=== PATIENT | female | born 1990 | race Caucasian/White ===

== ENCOUNTER 2019-06-20 19:23 | Inpatient (IN) | payer MEDICAID ==
[~2019-06-20] VITALS: Ht 172.7 cm; Wt 81.6 kg
[2019-06-20] MEDS ORDERED: LACTATED RINGER'S 1,000 ML IV ONE (19:30)
[2019-06-20 20:21] LABS: Basophils # (auto) 0 uL; Basophils % (auto) 0.3 % (0.0-2.0); Eosinophils # (auto) 0 uL; Eosinophils % (auto) 0.3 % (0.0-7.0); Hematocrit 33.6 % (36.0-46.0); Hemoglobin 11.6 g/dL (12.2-16.2); Lymphocytes % (auto) 19.9 % (10.0-50.0); Mean Corpuscular Hemoglobin 30.8 pg (28.0-32.0); Mean Corpuscular Hgb Conc. 34.6 g/dL (32.0-36.0); Monocytes # (auto) 0.5 uL; Monocytes % (auto) 5.2 % (0.0-12.0); Neutrophils # (auto) 7.3 uL; Neutrophils % (auto) 74.3 % (37.0-80.0); Nucleated Red Blood Cells % 0.1 %; Platelet Count (auto) 172 10^3/uL (140-450); Red Blood Cells 3.77 10^6/uL (4.0-5.20); Red Cell Distribution Width 14.3 % (11.8-14.3); White Blood Cell 9.9 10^3/uL (4.4-10.8)
[2019-06-20 20:28] LABS: Urine Bacteria FEW /hpf (None Seen); Urine Blood Negative /uL (Negative); Urine Specific Gravity 1.017 (1.001-1.035); Urine WBC <1 /hpf (0 - 5)
[2019-06-20 20:31] LABS: INR 0.91 (0.9-1.15); Partial Thromboplastin Time 28.9 sec (23.64-32.05)
[2019-06-20 20:39] LABS: Albumin 2.9 g/dL (3.4-5.0); BUN/Creatinine Ratio 10.7; Calcium 8.3 mg/dL (8.5-10.1); Potassium 3.7 mmol/L (3.5-5.1); Uric Acid 4.6 mg/dL (2.6-6.0)
[2019-06-20 20:41] LABS: Amphetamine Screen, Urine NEGATIVE (NEGATIVE); Barbiturate Scree,Urine NEGATIVE (NEGATIVE); Benzodiazephine Screen, Urine NEGATIVE (NEGATIVE); Cannabinoid Screen, Urine NEGATIVE (NEGATIVE); Cocaine Screen, Urine NEGATIVE (NEGATIVE); Opiate Scree,Urine NEGATIVE (NEGATIVE); Phencyclidine Screen, Urine NEGATIVE (NEGATIVE)
[2019-06-20 20:42] LABS: Bilirubin, Total 0.6 mg/dL (0.2-1.0); Total Protein 6.9 g/dL (6.4-8.2)
[2019-06-20 20:59] LABS: Alcohol, Urine < 3.0 mg/dL (0-5)
[2019-06-21] MEDS ORDERED: LACT. RINGERS/OXYTOCIN 20UNITS 1,000 ML IV SCH (00:56)
[2019-06-21] MEDS ORDERED: DERMOPLAST 60ML BOTTLE TOP PRN (01:00)
[2019-06-21] MEDS ORDERED: LIDOCAINE 2%HCL (LOCAL ANESTH.) INJ 20ML MDV ID ONE (01:00)
[2019-06-21] MEDS ORDERED: PHISODERM TOP SOLN 240ML BTL TOP PRN (01:00)
[2019-06-21] MEDS ORDERED: CARBOPROST TROMETHAMINE 250 MCG/1ML VIAL IM PRN (01:00)
[2019-06-21] MEDS ORDERED: WITCH HAZEL-GLYCERIN PAD TOP PRN (01:00)
[2019-06-21] MEDS ORDERED: METHYLERGONOVINE MALEATE 0.2 MG/ML AMP IM PRN (01:00)
[2019-06-21] MEDS ORDERED: PREN-96 PO (03:10)
[2019-06-21] MEDS: LACTATED RINGER'S 1,000 ML IV SCH ×2 (09:57→18:40)
[2019-06-22] MEDS: LACTATED RINGER'S 1,000 ML IV SCH ×2 (02:57→10:21)
[2019-06-22] MEDS ORDERED: BUTORPHANOL TARTRATE 2 MG/1 ML VIAL IV ONE ×2 (03:30→08:45)
[2019-06-22] MEDS ORDERED: PROMETHAZINE HCL 25 MG/ML 1ML IV ONE ×2 (03:30→08:45)
[2019-06-22 05:06] LABS: RPR Non Reactive (Non Reactive)
[2019-06-22] MEDS ORDERED: LACTATED RINGER'S 1,000 ML IV ONE (09:56)
[2019-06-22] MEDS ORDERED: NALOXONE HCL 0.4 MG/ML VIAL IV ONE (10:00)
[2019-06-22] MEDS ORDERED: fentaNYL 200mCg/100ml W ROPIVA 100 ML EPI SCH (10:00)
[2019-06-22] MEDS ORDERED: ePHEDrine SULFATE 50 MG/ML AMP IV ONE (10:00)
[2019-06-22] MEDS ORDERED: fentaNYL CITRATE 100 MCG/2 ML VL IV ONE (10:00)
[2019-06-22] MEDS ORDERED: LIDOCAINE HCL 2 %PF INJ 10ML AMP IJ ONE (10:00)
[2019-06-22 12:44] VITALS: BP 115/55
--- NOTE | 2019-06-22 12:45 | NUR ---
Ambulation: Patient OOB with standby assistance by RN. Patient ambulated to bathroom with steady gait. Patient able to void 850ml pink tinged urine without difficulty. [facility] teaching provided with returned demonstration by patient. Clean gown provided and bed linen changed. Patient ambulated back to bed with steady gait and no distress noted.
[2019-06-22] MEDS ORDERED: IBUPROFEN 600 MG TAB PO PRN (13:30)
[2019-06-22] MEDS ORDERED: ACETAMINOPHEN 325 MG TAB PO PRN (13:30)
[2019-06-22 13:58] VITALS: BP 88/50
--- NOTE | 2019-06-22 14:40 | NUR ---
VOID #2 PT AMBULATED TO BATHROOM VIA STEADY GAIT. PT ABLE TO VOID 700ML PINK TINGED URINE WITHOUT DIFFICULTY. NO DISTRESS NOTED. WILL CONTINUE TO MONITOR.
[2019-06-22 15:00] VITALS: BP 91/54
[2019-06-22] MEDS: IBUPROFEN 600 MG TAB PO PRN ×3 (16:42→23:19)
[2019-06-22 19:00] VITALS: BP 109/57
[2019-06-22 23:00] VITALS: BP 102/61
--- NOTE | 2019-06-22 23:45 | NUR ---
IV removal IV DC'd with clean technique, catheter fully intact. Pressure dressing applied to site. Patient tolerated well. NOTE:
[2019-06-23 02:32] VITALS: BP 105/55
[2019-06-23 07:30] VITALS: BP 89/52
[2019-06-23 11:00] VITALS: BP 114/68
--- NOTE | 2019-06-23 14:45 | NUR ---
Discharge: Discharge instructions given as ordered. Pt encouraged to follow up with [facility] as instructed. All questions and concerns addressed. Patient verbalized understanding. Medication reconciliation completed and copy given to patient. All required/requested vaccines given and copies of vaccinations given to patient. Patient encouraged to prepare to depart unit.
--- NOTE | 2019-06-23 15:10 | NUR ---
Discharge: Patient taken to vehicle via wheelchair with all personal belongings, accompanied by staff and family member. No distress noted at time of departure, no adverse changes in status since initial assessment.
== END 2019-06-23 15:10 | disposition home or self-care (01) | DRG 560 ==
LOC: LDRP 19:23 → OBSVTOIN 19:23 → LDRP 19:40
PROVIDERS: ADMIT Obstetrics & Gynecology; ATTEND Obstetrics & Gynecology
PROC: 10E0XZZ Delivery of Products of Conception, External Approach (ICD-10-PCS; principal; 2019-06-22)
DX: O41.03X0 Oligohydramnios, third trimester, not applicable or unspecified (principal); Z37.0 Single live birth; Z3A.38 38 weeks gestation of pregnancy
CPT/HCPCS: 36415; 59025; 59409; 76805; 76815; 80053; 80307; 81001; 81002; 84112; 84550; 85025; 85610; 85730; 86592; 86850; 86900; 86901; 96361; 96366; 96375; G0378; J2590